=== PATIENT | female | born 1995 | race Hispanic/Latino ===

== ENCOUNTER 2017-08-15 15:35 | Outpatient (CLI) | payer OTHER ==
[2017-08-15 16:40] LABS: #Basophils 0.1 thou/uL (0.0-0.2); #Eosinphils 0.2 thou/uL (0.0-0.7); #Lymphocytes 2.4 thou/uL (1.20-3.40); #Monocytes 0.5 thou/uL (0.11-0.59); #Neutrophils 7.1 thou/uL (1.40-6.50); %Basophils 0.5 % (0.0-1.0); %Eosinophils 1.5 % (0.0-10.0); %Lymphocytes 23.3 % (28.0-48.0); %Monocytes 4.9 % (0.0-4.0); Hematocrit 39.7 % (36.0-47.0); Mean Platelet Volume 7.6 fL (7.4-10.4); Red Blood Cell (RBC) Count 4.39 mill/uL (4.00-5.20); White Blood Cell (WBC) Count 10.2 thou/uL (4.8-10.8)
[2017-08-15 17:02] LABS: Anion Gap 11 mmol/L (10-20); BUN (Urea Nitrogen) 10 mg/dL (7.0-18.7); Calc. Creatinine Clearance 0 mL/min (70-130); Calcium 9.5 mg/dL (7.8-10.44); Carbon Dioxide 25 mmol/L (22-29); Chloride 105 mmol/L (98-107); Estimated GFR-MDRD Greater than 90
== END 2017-08-15 15:36 | disposition home or self-care (01) ==
LOC: LABBT 15:35
PROVIDERS: ATTEND Surgery
DX: Z01.812 Encounter for preprocedural laboratory examination (principal); R59.1 Generalized enlarged lymph nodes
CPT/HCPCS: 80048; 84703; 85025

== ENCOUNTER 2017-08-24 08:17 | Day surgery (SDC) | payer OTHER ==
[2017-08-15 15:56] VITALS: BMI 31.4
[2017-08-24] MEDS ORDERED: Ketorolac Tromethamine 30 MG/ML VIAL ONE ×2 (09:28→14:25)
[2017-08-24] MEDS ORDERED: CEFAZOLIN/Water 2 GM/20 ML SYRINGE ONE (09:28)
[2017-08-24] MEDS ORDERED: Scopolamine 1.5 mg/72 hour Patch ONE (10:03)
[2017-08-24] MEDS ORDERED: Ondansetron HCl/PF 4 MG/2 ML Vial ONE (10:03)
[2017-08-24] MEDS ORDERED: Midazolam HCl 2 mg/2 ml Vial ONE ×2 (10:03→10:25)
[2017-08-24] MEDS ORDERED: Fentanyl 100 MCG/2 ML VIAL ONE (10:25)
[2017-08-24] MEDS ORDERED: Bupivacaine/Epinephrine 0.25% 30 ML VIAL ONE (10:31)
[2017-08-24] MEDS ORDERED: Meperidine HCl/PF 25 MG/ML VIAL ONE (12:33)
[2017-08-24] MEDS ORDERED: diphenhydrAMINE 50 MG/ML VIAL ONE ×2 (12:38→14:25)
[2017-08-24] MEDS ORDERED: Metoclopramide HCl 10 MG/2 ML VIAL ONE (14:25)
[2017-08-24] MEDS ORDERED: Dexamethasone 20 MG/5 ML VIAL ONE (14:25)
[2017-08-24] MEDS ORDERED: Propofol 200 MG/20 ML VIAL ONE (14:25)
[2017-08-24] MEDS ORDERED: Lidocaine 1% PF 5 ML VIAL ONE (14:25)
--- NOTE | 2017-08-26 15:33 | PDOC.OP ---
Operative Note - Operative Note Operative Note: PROCEDURE: Left axillary lymph node excisional biopsy DATE OF PROCEDURE: 08/24/2017 SURGEON: Vaughn Isaac M.D. PREOPERATIVE DIAGNOSES: Enlarged left axillary lymph node POSTOPERATIVE DIAGNOSIS: Enlarged left axillary lymph node HISTORY: Patient with significantly enlarged left axillary lymph node. No other abnormal lymph nodes on physical examination. No history of trauma or infection to the leg or groin area. Lymph node became smaller but did not resolve and antibiotics and remains significantly tender. FNA was negative for malignancy. Excisional biopsy was recommended to exclude Hodgkin's or other lymphoma. PROCEDURE IN DETAIL: After informed consent was obtained and appropriate preoperative antibiotics administered the patient was taken to the operating which is placement supine position and anesthesia was administered. She was prepped and draped in standard sterile fashion and local anesthesia infused the skin and subcutaneous tissues overlying the enlarged lymph node, whose position was identified by ultrasound. An incision was made at the lower edge of the hairbearing skin and dissection carried down to the lymph node which was dissected free circumferentially. A small feeding lymphatics were clipped and divided between clips. The lymph node was removed and a small portion sent for Gram stain and culture as well as fungal and mycobacterial cultures. The remainder was sent fresh to pathology. The wound was irrigated and hemostasis confirmed. Subcutaneous tissues were reapproximated with 3-0 Monocryl and the skin was closed with 4-0 subcuticular Monocryl. Dermabond dressings were placed and the patient was taken to the recovery room in good condition. Estimated blood loss was minimal. There were no complications. Specimen is lymph node for pathology and for cultures.
== END 2017-08-24 14:35 | disposition home or self-care (01) ==
LOC: SDC 08:17
PROVIDERS: ATTEND Surgery
PROC: 07B60ZX Excision of Left Axillary Lymphatic, Open Approach, Diagnostic (ICD-10-PCS; principal; 2017-08-24)
DX: R59.0 Localized enlarged lymph nodes (principal); Z87.891 Personal history of nicotine dependence; Z97.5 Presence of (intrauterine) contraceptive device; Z79.899 Other long term (current) drug therapy; Z98.890 Other specified postprocedural states; Z91.018 Allergy to other foods
CPT/HCPCS: 87070; 87102; 87205; 87206; 88184; 88307; 88341; 88342; 96374; J1100; J1200; J1885; J2001; J2175; J2250; J2405; J2704; J2765; J3010